=== PATIENT | female | born 1965 | race Caucasian/White ===

== ENCOUNTER 2023-04-10 17:26 | Emergency (ER) | payer OTHER, SELFPAY ==
[2023-04-10 17:35] VITALS: BP 159/68; PULSE 103; RESP 18; TEMP 36.8; O2SAT 100
--- NOTE | 2023-04-10 17:45 | ED.SKABFB ---
HPI - Skin/Abscess/Foreign Bdy General Chief complaint: Extremity Injury, Upper Stated complaint: Lt Hand Swelling Time Seen by Provider: 04/10/23 17:39 Source: patient, family () and RN notes reviewed Mode of arrival: ambulatory Limitations: no limitations History of Present Illness HPI narrative: Patient presents today complaining of left hand redness and itching times 2-3 days. Patient states she scraped her hand when retrieving eggs from underneath a saleh. Reports itching but no pain. She reports some redness extending from her hand to her forearm today. She has tried no [id number] treatment for her symptoms prior to arrival. Related Data Allergies Allergy/AdvReac Type Severity Reaction Status Date / Time No Known Allergies Allergy Verified 04/10/23 17:40 Review of Systems Review of Systems: CONSTITUTIONAL: Denies body aches, fever, chills, or sweats. EYES: Denies visual changes, redness, or discharge. ENT: Denies rhinorrhea, congestion, sore throat, or otalgia. CARDIOVASCULAR: Denies chest pain, palpitations, or edema. RESPIRATORY: Denies cough or dyspnea. GASTROINTESTINAL: Denies abdominal pain, nausea, vomiting, or diarrhea. GENITOURINARY: Denies dysuria or hematuria. SKIN: + abrasions and redness to left hand MUSCULOSKELETAL: Denies back pain, joint pain, or myalgia. NEUROLOGIC: Denies headache, numbness, tingling, or weakness. PSYCH: Denies depression or anxiety. PMFSH Comments At time of signature, I have reviewed and agree with nursing past medical, surgical, social and family history unless otherwise noted. Please see nursing chart for further information. There is no relevant family history pertinent to the presenting complaint Exam Narrative: GENERAL: Well-appearing, well-nourished, and in no acute distress. HEAD: Normocephalic, atraumatic. EYES: EOMI. No redness or drainage. Conjunctivae normal. ENT: Mucous membranes pink and moist. NECK: Normal AROM. CHEST: No respiratory distress. EXTREMITIES: Normal range of motion. No edema. SKIN: Warm, dry, no rash. Capillary refill normal. Normal skin turgor. Small linear abrasion with surrounding erythema and localized edema to the dorsum of the hand at the base of the 2nd finger. Similar lesion at the base of the thumb. Some faint erythema extending from the dorsum of the hand to the dorsum of the wrist and forearm. No tenderness to palpation. No drainage or fluctuance noted. Distal sensation intact. Capillary refill normal. Radial pulse normal. Full range of motion of all fingers. NEURO: No focal deficits. Alert and oriented x3. Gait steady. PSYCH: Normal affect. No signs of depression or anxiety. Course Course Level of Care: Express Care Visit Vital Signs Vital signs: Vital Signs Temperature 98.3 F 04/10/23 17:35 Pulse Rate 103 H 04/10/23 17:35 Respiratory Rate 18 04/10/23 17:35 Blood Pressure 159/68 H 04/10/23 17:35 Pulse Oximetry 100 04/10/23 17:35 Oxygen Delivery Room Air 04/10/23 17:35 Temperature 98.3 F 04/10/23 17:35 Pulse Rate 103 H 04/10/23 17:35 Respiratory Rate 18 04/10/23 17:35 Blood Pressure 159/68 H 04/10/23 17:35 Pulse Oximetry 100 04/10/23 17:35 Oxygen Delivery Room Air 04/10/23 17:35 Reviewed. Pt has been instructed to follow up with her PCP regarding her elevated blood pressure today. MDM - Skin/Abscess/Foreign Bdy MDM Narrative Medical decision making narrative: Exam consistent with cellulitis related to abrasions. Prescription for Keflex sent to pharmacy. Anticipatory guidance given. Differential Diagnosis Differential diagnosis: Likely abscess of skin or subcutaneous tissue, cellulitis, impetigo and contact dermatitis Critical Care Time Critical Care Time Critical Care Time: No Discharge Plan Discharge Clinical Impression: Cellulitis of hand, left Patient Disposition: Home, Self-Care Condition: Stable Instructions: Antibiotic
== END 2023-04-10 17:50 | disposition home or self-care (01) ==
PROVIDERS: Emergency Provider Nurse Practitioner
DX: L03.114 Cellulitis of left upper limb (principal)
CPT/HCPCS: 99213; G0463